=== PATIENT | female | born 1975 | race African-American/Black ===

== ENCOUNTER 2018-02-27 16:05 | Emergency (ER) | payer MEDICAID, OTHER ==
[2018-02-27] MEDS ORDERED: SOD CHLORIDE 0.9% 1,000 ML IV (19:15)
[2018-02-27] MEDS ORDERED: HYDROmorphONE 0.5 MG/0.5 ML SYG IV (19:26)
[2018-02-27] MEDS ORDERED: ONDANSETRON 4 MG INJ IV (19:26)
[2018-02-27] MEDS ORDERED: DIPHENHYDRAMINE 50 MG INJ IV (19:30)
[2018-02-27 19:32] LABS: ADD UMIC NO; UR ASCORBIC ACID NEGATIVE (NEGATIVE); UR BILIRUBIN (Dip) NEGATIVE (NEGATIVE); UR BLOOD (Dip) NEGATIVE (NEGATIVE); UR CLARITY CLEAR (CLEAR); UR COLOR STRAW (YELLOW); UR GLUCOSE (Dip) 3+ mg/dL (NEGATIVE); UR KETONES (Dip) NEGATIVE (NEGATIVE); UR LEUKOCYTE ESTERASE (Dip) NEGATIVE Leu/ul (NEGATIVE); UR NITRITE (Dip) NEGATIVE (NEGATIVE); UR SPECIFIC GRAVITY (Dip) 1.014 (1.003-1.030); UR TOTAL PROTEIN (Dip) NEGATIVE (NEGATIVE); UR UROBILINOGEN (Dip) NEGATIVE (NEGATIVE)
[2018-02-27] MEDS: ONDANSETRON (ODT) 4 MG TAB ODT (20:13)
[2018-02-27] MEDS: HYDROmorphONE 2 MG/ML SYG IM (20:13)
[2018-02-27] MEDS: DIPHENHYDRAMINE 50 MG INJ IM (20:13)
[2018-02-27 21:35] LABS: AMPHETAMINE/METHAMPHETAMINE Negative (NEGATIVE); BARBITURATES Negative (NEGATIVE); BENZODIAZEPINES Negative (NEGATIVE); CANNABINOIDS Negative (NEGATIVE); COCAINE Negative (NEGATIVE)
[2018-02-27 21:37] LABS: OPIATES Positive (NEGATIVE)
[2018-02-27] MEDS: HYDROmorphONE 0.5 MG/0.5 ML SYG IV (22:13)
== END 2018-02-27 22:30 | disposition home or self-care (01) ==
LOC: E/R 16:05
DX: D57.00 Hb-SS disease with crisis, unspecified (principal); R40.2142 Coma scale, eyes open, spontaneous, at arrival to emergency department; R40.2362 Coma scale, best motor response, obeys commands, at arrival to emergency department; R40.2252 Coma scale, best verbal response, oriented, at arrival to emergency department; R10.9 Unspecified abdominal pain; Z72.89 Other problems related to lifestyle; Z86.2 Personal history of diseases of the blood and blood-forming organs and certain disorders involving the immune mechanism
CPT/HCPCS: 71045; 80307; 81003; 93005; 96372; 96374; 99285-25

== ENCOUNTER 2018-04-02 05:54 | Emergency (ER) | payer MEDICAID ==
[2018-04-02] MEDS ORDERED: HYDROmorphONE 1 MG/ML SYG IV (06:49)
[2018-04-02 06:53] LABS: URINE BLOOD (Dip) POC Negative (NEGATIVE); URINE KETONES (Dip) POC Negative (NEGATIVE); URINE LEUKOCYTE EST (Dip) POC Negative (NEGATIVE); URINE NITRITE (Dip) POC Negative (NEGATIVE); URINE TOTAL PROTEIN POC 1+ (NEGATIVE)
[2018-04-02] MEDS: HYDROmorphONE 2 MG/ML SYG IM (07:05)
[2018-04-02] MEDS: ONDANSETRON (ODT) 4 MG TAB ODT (07:05)
== END 2018-04-02 07:55 | disposition home or self-care (01) ==
LOC: FTE 05:54
DX: R52 Pain, unspecified (principal); E11.9 Type 2 diabetes mellitus without complications
CPT/HCPCS: 81003; 81025; 96372; 99284-25

== ENCOUNTER 2018-05-12 05:10 | Emergency (ER) | payer SELFPAY, MEDICAID ==
[2018-05-12] MEDS: SOD CHLORIDE 0.9% 1,000 ML IV ×2 (05:50→07:02)
[2018-05-12 06:15] LABS: WHITE BLOOD COUNT 2.6 10^3/ul (4.8-10.8)
[2018-05-12 06:15] LABS: ABNORMAL IP MESSAGE 1; HEMATOCRIT 31.9 % (37.0-47.0); HEMOGLOBIN 9.5 g/dl (12.0-16.0); MEAN CORPUSCULAR HEMOGLOBIN 22.4 pg (29.0-33.0); MEAN CORPUSCULAR HGB CONC 29.8 g/dl (32.0-37.0); MEAN CORPUSCULAR VOLUME 75.2 fl (82.0-101.0); PLATELET COUNT 108 10^3/UL (140-415); RED BLOOD COUNT 4.24 10^6/ul (4.20-5.40); RED CELL DISTRIBUTION WIDTH 17.2 % (11.5-14.5); RETICULOCYTE COUNT % 1.9 % (0.5-1.5); RETICULOCYTE RBC 4.24
[2018-05-12 06:25] LABS: ADD UMIC YES; UR ASCORBIC ACID NEGATIVE (NEGATIVE); UR BILIRUBIN (Dip) NEGATIVE (NEGATIVE); UR BLOOD (Dip) 1+ mg/dL (NEGATIVE); UR CLARITY CLEAR (CLEAR); UR COLOR YELLOW (YELLOW); UR GLUCOSE (Dip) 3+ mg/dL (NEGATIVE); UR KETONES (Dip) NEGATIVE (NEGATIVE); UR LEUKOCYTE ESTERASE (Dip) NEGATIVE Leu/ul (NEGATIVE); UR NITRITE (Dip) NEGATIVE (NEGATIVE); UR RBC 2 /HPF (0-5); UR SQUAMOUS EPITHELIAL CELL FEW /HPF (FEW); UR TOTAL PROTEIN (Dip) 1+ mg/dl (NEGATIVE); UR UROBILINOGEN (Dip) NEGATIVE (NEGATIVE); UR WBC 2 /HPF (0-5)
[2018-05-12 06:29] LABS: INR 1.32; PROTIME 16.6 Sec (11.9-14.9); PT RATIO 1.3
[2018-05-12 06:30] LABS: ALBUMIN 3.2 g/dl (3.3-4.9); ALBUMIN/GLOBULIN RATIO 0.78; ALKALINE PHOSPHATASE 129 IU/L (42-121); ANION GAP 14 (5-13); ASPARTATE AMINO TRANSFERASE 16 IU/L (15-46); BILIRUBIN,INDIRECT 0.3 mg/dl (0-1.1); BILIRUBIN,TOTAL 0.3 mg/dl (0.2-1.3); BLOOD UREA NITROGEN 8 mg/dl (7-20); CALCIUM 7.5 mg/dl (8.4-10.2); CARBON DIOXIDE 18 mmol/L (21-31); CHLORIDE 107 mmol/L (97-110); CREATININE 0.89 mg/dl (0.44-1.00); Estimated GFR > 60 mL/min (>60); PARTIAL THROMBOPLASTIN TIME 37.9 Sec (23.0-35.0); POTASSIUM 3.5 mmol/L (3.5-5.1); SODIUM 139 mmol/L (135-144); TOTAL PROTEIN 7.3 g/dl (6.1-8.1)
[2018-05-12 06:31] LABS: ADD MAN DIFF? YES; ALANINE AMINOTRANSFERASE < 6 IU/L (13-69); POSITIVE DIFF @See below
[2018-05-12 06:32] LABS: GLUCOSE 571 mg/dl (70-220)
[2018-05-12] MEDS: DIPHENHYDRAMINE 50 MG INJ IV ×2 (07:02→08:50)
[2018-05-12] MEDS: HYDROmorphONE 2 MG/ML SYG IV (07:02)
[2018-05-12] MEDS: ONDANSETRON 4 MG INJ IV ×2 (07:02→08:50)
[2018-05-12 07:18] LABS: HEMOGLOBIN A1C 10.4 % (0-5.9)
[2018-05-12] MEDS ORDERED: GLUCOSE GEL 15 GRAM TUBE PO ×2 (07:30)
[2018-05-12] MEDS ORDERED: GLUCOSE GEL 15 GRAM TUBE BUCCAL (07:30)
[2018-05-12] MEDS ORDERED: DEXTROSE 50% 50 ML SYRINGE IV ×2 (07:30)
[2018-05-12] MEDS ORDERED: GLUCAGON 1 MG INJ IM (07:30)
[2018-05-12] MEDS: INSULIN REGULAR, HUMAN 100 UNIT/1 ML 3ML VIAL IV (07:31)
[2018-05-12 07:40] LABS: ANISOCYTOSIS 2+ (0-0); BAND NEUTROPHILS #M 0.3 10^3/ul (0.0-0.6); BAND NEUTROPHILS % (M) 15 % (0-4); EOSINOPHILS % (M) 4 % (0-7); LYMPHOCYTES #M 0.2 10^3/ul (0.8-2.9); LYMPHOCYTES % (M) 8 % (15-51); MICROCYTOSIS 2+ (0-0); MONOCYTE #M 0.1 10^3/ul (0.3-0.9); MONOCYTES % (M) 4 % (0-11); PLATELET ESTIMATE INCREASED; POLYCHROMASIA 1+ (0-0); REACTIVE LYMPHOCYTES% (M) 3 % (0-0); SEG NEUT #M 1.7 10^3/ul (1.6-7.5); SEGMENTED NEUTROPHILS (M) % 66 % (39-77); SMUDGE%M 12 % (0-0)
[2018-05-12] MEDS: HYDROmorphONE 1 MG/ML SYG IV (08:51)
== END 2018-05-12 09:28 | disposition home or self-care (01) ==
LOC: E/R 05:10
DX: D57.00 Hb-SS disease with crisis, unspecified (principal); E11.65 Type 2 diabetes mellitus with hyperglycemia; M79.643 Pain in unspecified hand
CPT/HCPCS: 80053; 81001; 82962; 83036; 85025; 85045; 85610; 85730; 96374; 96375; 96376; 99284-25

== ENCOUNTER 2018-07-03 01:32 | Emergency (ER) | payer SELFPAY ==
[2018-07-03] MEDS: SOD CHLORIDE 0.9% 1,000 ML IV (02:28)
[2018-07-03 03:08] LABS: ADD MAN DIFF? NO
[2018-07-03 03:10] LABS: WHITE BLOOD COUNT 4.4 10^3/ul (4.8-10.8)
[2018-07-03 03:10] LABS: ABNORMAL IP MESSAGE 1; BASOPHILS % 0.2 % (0.0-2.0); EOSINOPHILS % 0.9 % (0.0-7.0); HEMATOCRIT 30.1 % (37.0-47.0); HEMOGLOBIN 8.7 g/dl (12.0-16.0); LYMPHOCYTES # 1.6 10^3/ul (0.8-2.9); LYMPHOCYTES % 37.4 % (15.0-51.0); MEAN CORPUSCULAR HEMOGLOBIN 23.7 pg (29.0-33.0); MEAN CORPUSCULAR HGB CONC 28.9 g/dl (32.0-37.0); MEAN PLATELET VOLUME 8.8 fl (7.4-10.4); MONOCYTE # 0.2 10^3/ul (0.3-0.9); MONOCYTES % 4.3 % (0.0-11.0); NEUTROPHIL # 2.5 10^3/ul (1.6-7.5); PLATELET COUNT 211 10^3/UL (140-415); RED BLOOD COUNT 3.67 10^6/ul (4.20-5.40); RED CELL DISTRIBUTION WIDTH 20.2 % (11.5-14.5); RETICULOCYTE COUNT # 0.088 X10^6 (0.020-0.110); RETICULOCYTE COUNT % 2.4 % (0.5-1.5); RETICULOCYTE RBC 3.67
[2018-07-03 03:17] LABS: POSITIVE DIFF @See below
[2018-07-03] MEDS: ONDANSETRON 4 MG INJ IV (03:17)
[2018-07-03] MEDS: morphine 4 MG/ML VIAL IV (03:17)
[2018-07-03 03:29] LABS: ANION GAP 13 (5-13); BLOOD UREA NITROGEN 11 mg/dl (7-20); CALCIUM 8.6 mg/dl (8.4-10.2); CARBON DIOXIDE 22 mmol/L (21-31); CHLORIDE 105 mmol/L (97-110); CREATININE 1.11 mg/dl (0.44-1.00); Estimated GFR > 60 mL/min (>60); GLUCOSE 299 mg/dl (70-220); POTASSIUM 4.7 mmol/L (3.5-5.1); SODIUM 140 mmol/L (135-144)
[2018-07-03] MEDS: DIPHENHYDRAMINE 50 MG INJ IV (03:53)
[2018-07-03] MEDS: HYDROmorphONE 2 MG/ML SYG IM ×2 (03:59→05:51)
== END 2018-07-03 06:03 | disposition home or self-care (01) ==
LOC: E/R 01:32
DX: D57.00 Hb-SS disease with crisis, unspecified (principal)
CPT/HCPCS: 80048; 85025; 85045; 96374; 96375; 96376; 99284-25

== ENCOUNTER 2018-07-21 18:59 | Emergency (ER) | payer SELFPAY, OTHER ==
[2018-07-22] MEDS ORDERED: SOD CHLORIDE 0.9% 1,000 ML IV (00:32)
[2018-07-22] MEDS ORDERED: ONDANSETRON 4 MG INJ IV (00:32)
[2018-07-22] MEDS: morphine 4 MG/ML VIAL IV (01:15)
[2018-07-22] MEDS: HYDROmorphONE 0.5 MG/0.5 ML SYG IM ×2 (03:24→05:41)
== END 2018-07-22 05:59 | disposition home or self-care (01) ==
LOC: E/R 18:59
DX: D57.1 Sickle-cell disease without crisis (principal); E11.9 Type 2 diabetes mellitus without complications; Z79.4 Long term (current) use of insulin
CPT/HCPCS: 71045; 93005; 96372; 96374; 99285-25

== ENCOUNTER 2018-07-24 23:39 | Emergency (ER) | payer SELFPAY ==
[2018-07-25 01:55] LABS: ADD UMIC NO; UR ASCORBIC ACID NEGATIVE (NEGATIVE); UR BILIRUBIN (Dip) NEGATIVE (NEGATIVE); UR BLOOD (Dip) NEGATIVE (NEGATIVE); UR CLARITY CLEAR (CLEAR); UR COLOR STRAW (YELLOW); UR GLUCOSE (Dip) 3+ mg/dL (NEGATIVE); UR KETONES (Dip) NEGATIVE (NEGATIVE); UR LEUKOCYTE ESTERASE (Dip) NEGATIVE Leu/ul (NEGATIVE); UR NITRITE (Dip) NEGATIVE (NEGATIVE); UR SPECIFIC GRAVITY (Dip) 1.026 (1.003-1.030); UR TOTAL PROTEIN (Dip) NEGATIVE (NEGATIVE); UR UROBILINOGEN (Dip) NEGATIVE (NEGATIVE)
[2018-07-25] MEDS: DIPHENHYDRAMINE 50 MG INJ IM ×3 (01:59→05:49)
[2018-07-25] MEDS: HYDROmorphONE 2 MG/ML SYG IM ×3 (01:59→05:50)
[2018-07-25] MEDS: ONDANSETRON (ODT) 4 MG TAB ODT (02:00)
== END 2018-07-25 06:06 | disposition home or self-care (01) ==
LOC: E/R 23:39
DX: D57.1 Sickle-cell disease without crisis (principal); E11.9 Type 2 diabetes mellitus without complications; Z79.4 Long term (current) use of insulin
CPT/HCPCS: 81003; 81025; 96372; 99285-25

== ENCOUNTER 2018-08-06 01:40 | Emergency (ER) | payer SELFPAY ==
[2018-08-06] MEDS: HYDROmorphONE 2 MG/ML SYG IM ×3 (03:52→05:35)
[2018-08-06] MEDS: DIPHENHYDRAMINE 50 MG INJ IM ×3 (03:52→05:35)
[2018-08-06] MEDS: ONDANSETRON (ODT) 4 MG TAB ODT ×2 (03:52→04:45)
== END 2018-08-06 05:45 | disposition home or self-care (01) ==
LOC: E/R 01:40
DX: D57.00 Hb-SS disease with crisis, unspecified (principal); Z79.4 Long term (current) use of insulin
CPT/HCPCS: 96372; 99284-25

== ENCOUNTER 2018-08-16 21:17 | Inpatient (IN) | payer SELFPAY ==
[2018-08-16] MEDS: HYDROmorphONE 2 MG/ML SYG IM (23:40)
[2018-08-16] MEDS: DIPHENHYDRAMINE 50 MG INJ IM (23:40)
[2018-08-17] MEDS: HYDROmorphONE 2 MG/ML SYG IM (00:56)
[2018-08-17] MEDS: HYDROXYUREA 500 MG CAP PO ×3 (03:00→21:00)
[2018-08-17] MEDS ORDERED: HYDROmorphONE 2 MG/ML SYG IV (03:00)
[2018-08-17] MEDS ORDERED: NACL 0.9% 3 ML SYG IV (03:00)
[2018-08-17] MEDS ORDERED: GLUCOSE GEL 15 GRAM TUBE PO ×2 (03:30)
[2018-08-17] MEDS ORDERED: GLUCAGON 1 MG INJ IM (03:30)
[2018-08-17] MEDS ORDERED: GLUCOSE GEL 15 GRAM TUBE BUCCAL (03:30)
[2018-08-17] MEDS ORDERED: DEXTROSE 50% 50 ML SYRINGE IV ×2 (03:30)
[2018-08-17] MEDS: HYDROmorphONE 1 MG/ML SYG IV ×2 (04:27→06:00)
[2018-08-17 04:39] LABS: ADD MAN DIFF? NO
[2018-08-17] MEDS: DIPHENHYDRAMINE 50 MG CAP PO (04:54)
[2018-08-17 05:01] LABS: ALANINE AMINOTRANSFERASE 18 IU/L (13-69); ALBUMIN 3.9 g/dl (3.3-4.9); ALBUMIN/GLOBULIN RATIO 0.82; ALKALINE PHOSPHATASE 206 IU/L (42-121); ANION GAP 13 (5-13); ASPARTATE AMINO TRANSFERASE 23 IU/L (15-46); BILIRUBIN,INDIRECT 0.2 mg/dl (0-1.1); BILIRUBIN,TOTAL 0.2 mg/dl (0.2-1.3); BLOOD UREA NITROGEN 11 mg/dl (7-20); CARBON DIOXIDE 25 mmol/L (21-31); CHLORIDE 96 mmol/L (97-110); CREATININE 1.29 mg/dl (0.44-1.00); Estimated GFR 55 mL/min (>60); LIPASE 48 U/L (23-300); POTASSIUM 4.6 mmol/L (3.5-5.1); SODIUM 134 mmol/L (135-144); TOTAL PROTEIN 8.6 g/dl (6.1-8.1)
[2018-08-17 05:22] LABS: GLUCOSE 622 mg/dl (70-220)
[2018-08-17] MEDS: LIDOCAINE 1% (MPF) 5 ML VIAL SC (05:30)
[2018-08-17] MEDS: INSULIN GLARGINE [LANTus] (100 UNITS/ML) SYG SC ×2 (05:30→21:25)
[2018-08-17] MEDS: INSULIN REGULAR, HUMAN 100 UNIT/1 ML 3ML VIAL IV (05:40)
[2018-08-17 05:51] LABS: WHITE BLOOD COUNT 3.1 10^3/ul (4.8-10.8)
[2018-08-17 05:51] LABS: BASOPHILS % 0.3 % (0.0-2.0); EOSINOPHILS # 0.1 10^3/ul (0.0-0.5); EOSINOPHILS % 1.9 % (0.0-7.0); HEMATOCRIT 30.8 % (37.0-47.0); HEMOGLOBIN 9.2 g/dl (12.0-16.0); LYMPHOCYTES % 33.8 % (15.0-51.0); MEAN CORPUSCULAR HEMOGLOBIN 24.2 pg (29.0-33.0); MEAN CORPUSCULAR HGB CONC 29.9 g/dl (32.0-37.0); MEAN CORPUSCULAR VOLUME 81.1 fl (82.0-101.0); MEAN PLATELET VOLUME 9.5 fl (7.4-10.4); MONOCYTE # 0.2 10^3/ul (0.3-0.9); MONOCYTES % 6.5 % (0.0-11.0); NEUTROPHIL # 1.8 10^3/ul (1.6-7.5); NEUTROPHILS % 57.2 % (39.0-77.0); PLATELET COUNT 207 10^3/UL (140-415); RED CELL DISTRIBUTION WIDTH 15.6 % (11.5-14.5); RETICULOCYTE COUNT # 0.079 X10^6 (0.020-0.110); RETICULOCYTE COUNT % 2.1 % (0.5-1.5)
[2018-08-17 05:52] LABS: POSITIVE DIFF @See below
[2018-08-17] MEDS ORDERED: HYDROmorphONE 1 MG/ML SYG IV ×2 (06:00→07:30)
[2018-08-17] MEDS: SOD CHLORIDE 0.9% 1,000 ML IV ×3 (06:00→22:00)
[2018-08-17] MEDS: ACCU-CHEK XX (07:45)
[2018-08-17 07:48] LABS: SICKLE CELL SCREEN POSITIVE (NEGATIVE)
[2018-08-17] MEDS: FOLIC ACID 1 MG TAB PO (08:07)
[2018-08-17] MEDS: CREON (12k-38k-60k) 1 CAP PO ×3 (08:07→17:25)
[2018-08-17] MEDS: PANTOPRAZOLE (EC) 40 MG TAB PO ×2 (08:10→17:25)
[2018-08-17] MEDS: INSULIN ASPART [NOVOLOG] 3 ML PEN SC ×7 (08:54→21:00)
[2018-08-17 09:03] LABS: HEMOGLOBIN A1C 9.2 % (0-5.9)
[2018-08-17] MEDS: HYDROmorphONE 2 MG TAB PO ×4 (09:29→21:01)
[2018-08-17] MEDS: ACETAMINOPHEN 325 MG TAB PO (12:00)
[2018-08-17] MEDS: RIVAROXABAN 20 MG TABLET PO (17:25)
[2018-08-17] MEDS ORDERED: INSULIN GLARGINE [LANTus] (100 UNITS/ML) SYG SC (21:00)
[2018-08-18] MEDS: HYDROmorphONE 2 MG TAB PO ×6 (00:56→20:35)
[2018-08-18] MEDS: PANTOPRAZOLE (EC) 40 MG TAB PO ×2 (05:00→17:54)
[2018-08-18] MEDS: SOD CHLORIDE 0.9% 1,000 ML IV ×3 (06:00→19:01)
[2018-08-18] MEDS: CREON (12k-38k-60k) 1 CAP PO ×3 (07:53→17:54)
[2018-08-18] MEDS: INSULIN ASPART [NOVOLOG] 3 ML PEN SC ×7 (08:13→20:43)
[2018-08-18 08:16] LABS: ADD UMIC YES; UR ASCORBIC ACID NEGATIVE (NEGATIVE); UR BACTERIA FEW /HPF (NONE SEEN); UR BILIRUBIN (Dip) NEGATIVE (NEGATIVE); UR BLOOD (Dip) 2+ mg/dL (NEGATIVE); UR CLARITY CLEAR (CLEAR); UR COLOR YELLOW (YELLOW); UR GLUCOSE (Dip) 3+ mg/dL (NEGATIVE); UR KETONES (Dip) NEGATIVE (NEGATIVE); UR LEUKOCYTE ESTERASE (Dip) TRACE Leu/ul (NEGATIVE); UR NITRITE (Dip) NEGATIVE (NEGATIVE); UR RBC 2 /HPF (0-5); UR SPECIFIC GRAVITY (Dip) 1.013 (1.003-1.030); UR TOTAL PROTEIN (Dip) NEGATIVE (NEGATIVE); UR UROBILINOGEN (Dip) NEGATIVE (NEGATIVE); UR WBC 2 /HPF (0-5)
[2018-08-18 08:18] LABS: AMPHETAMINE/METHAMPHETAMINE Negative (NEGATIVE); BARBITURATES Negative (NEGATIVE); BENZODIAZEPINES Negative (NEGATIVE); CANNABINOIDS Negative (NEGATIVE); COCAINE Negative (NEGATIVE)
[2018-08-18 08:21] LABS: OPIATES Positive (NEGATIVE)
[2018-08-18] MEDS: FOLIC ACID 1 MG TAB PO (08:55)
[2018-08-18] MEDS: HYDROXYUREA 500 MG CAP PO ×2 (08:57→20:43)
[2018-08-18] MEDS: RIVAROXABAN 20 MG TABLET PO (17:54)
[2018-08-18] MEDS: INSULIN GLARGINE [LANTus] (100 UNITS/ML) SYG SC (20:43)
[2018-08-18] MEDS: ZOLPIDEM 5 MG TAB PO (22:55)
[2018-08-19] MEDS: HYDROmorphONE 2 MG TAB PO ×6 (00:42→20:32)
[2018-08-19] MEDS: SOD CHLORIDE 0.9% 1,000 ML IV ×3 (04:59→22:00)
[2018-08-19] MEDS: PANTOPRAZOLE (EC) 40 MG TAB PO ×2 (05:16→17:26)
[2018-08-19] MEDS: CREON (12k-38k-60k) 1 CAP PO ×3 (08:32→17:14)
[2018-08-19] MEDS: FOLIC ACID 1 MG TAB PO (08:32)
[2018-08-19] MEDS: INSULIN ASPART [NOVOLOG] 3 ML PEN SC ×7 (09:05→20:33)
[2018-08-19] MEDS: HYDROXYUREA 500 MG CAP PO ×2 (09:05→20:39)
[2018-08-19] MEDS: DIPHENHYDRAMINE 50 MG CAP PO ×2 (13:20→20:33)
[2018-08-19] MEDS: ACETAMINOPHEN 325 MG TAB PO (15:52)
[2018-08-19] MEDS: RIVAROXABAN 20 MG TABLET PO (17:14)
[2018-08-19] MEDS: INSULIN GLARGINE [LANTus] (100 UNITS/ML) SYG SC (20:39)
[2018-08-20] MEDS: HYDROmorphONE 2 MG TAB PO ×4 (01:08→12:46)
[2018-08-20] MEDS: DIPHENHYDRAMINE 50 MG CAP PO ×3 (02:23→12:45)
[2018-08-20] MEDS: SOD CHLORIDE 0.9% 1,000 ML IV (06:00)
[2018-08-20] MEDS: PANTOPRAZOLE (EC) 40 MG TAB PO (06:33)
[2018-08-20] MEDS: INSULIN ASPART [NOVOLOG] 3 ML PEN SC ×4 (08:04→12:00)
[2018-08-20] MEDS: FOLIC ACID 1 MG TAB PO (08:41)
[2018-08-20] MEDS: CREON (12k-38k-60k) 1 CAP PO ×2 (08:41→12:45)
[2018-08-20] MEDS: HYDROXYUREA 500 MG CAP PO (08:44)
== END 2018-08-20 14:10 | disposition home or self-care (01) | DRG 812 ==
LOC: PP2 08-20 09:30 → E/R 21:17 → TEL 08-17 01:18
DX: D57.00 Hb-SS disease with crisis, unspecified (principal); F11.20 Opioid dependence, uncomplicated; G89.4 Chronic pain syndrome; F17.200 Nicotine dependence, unspecified, uncomplicated; E11.65 Type 2 diabetes mellitus with hyperglycemia; Z86.711 Personal history of pulmonary embolism; Z86.718 Personal history of other venous thrombosis and embolism; Z79.4 Long term (current) use of insulin; Z88.2 Allergy status to sulfonamides
CPT/HCPCS: 36415; 71045; 80053; 80307; 81001; 82962; 83036; 83690; 85025; 85045; 85660; 96372; 99285-25

== ENCOUNTER 2018-09-07 12:46 | Emergency (ER) | payer SELFPAY, MEDICAID ==
[2018-09-07] MEDS: HYDROmorphONE 2 MG/ML SYG IM ×2 (13:03→14:10)
[2018-09-07] MEDS: ONDANSETRON (ODT) 4 MG TAB ODT (13:03)
[2018-09-07] MEDS: DIPHENHYDRAMINE 50 MG INJ IM (13:03)
[2018-09-07 14:02] LABS: ADD MAN DIFF? NO
[2018-09-07 14:08] LABS: WHITE BLOOD COUNT 3.6 10^3/ul (4.8-10.8)
[2018-09-07 14:08] LABS: BASOPHILS % 0.6 % (0.0-2.0); EOSINOPHILS # 0.1 10^3/ul (0.0-0.5); EOSINOPHILS % 2.5 % (0.0-7.0); HEMATOCRIT 37.6 % (37.0-47.0); HEMOGLOBIN 11.1 g/dl (12.0-16.0); LYMPHOCYTES # 1.2 10^3/ul (0.8-2.9); MEAN CORPUSCULAR HEMOGLOBIN 24.4 pg (29.0-33.0); MEAN CORPUSCULAR HGB CONC 29.5 g/dl (32.0-37.0); MEAN CORPUSCULAR VOLUME 82.6 fl (82.0-101.0); MEAN PLATELET VOLUME 8.9 fl (7.4-10.4); MONOCYTE # 0.2 10^3/ul (0.3-0.9); MONOCYTES % 6.6 % (0.0-11.0); RED BLOOD COUNT 4.55 10^6/ul (4.20-5.40); RED CELL DISTRIBUTION WIDTH 17.5 % (11.5-14.5); RETICULOCYTE COUNT # 0.113 X10^6 (0.020-0.110); RETICULOCYTE COUNT % 2.5 % (0.5-1.5); RETICULOCYTE RBC 4.55
[2018-09-07 14:19] LABS: PLATELET COUNT 272 10^3/UL (140-415); POSITIVE DIFF @See below
[2018-09-07 14:24] LABS: ALANINE AMINOTRANSFERASE 29 IU/L (13-69); ALBUMIN 4.3 g/dl (3.3-4.9); ALBUMIN/GLOBULIN RATIO 0.75; ALKALINE PHOSPHATASE 225 IU/L (42-121); ANION GAP 11 (5-13); ASPARTATE AMINO TRANSFERASE 56 IU/L (15-46); BILIRUBIN,INDIRECT 0.3 mg/dl (0-1.1); BILIRUBIN,TOTAL 0.3 mg/dl (0.2-1.3); BLOOD UREA NITROGEN 13 mg/dl (7-20); CALCIUM 9.5 mg/dl (8.4-10.2); CARBON DIOXIDE 26 mmol/L (21-31); CHLORIDE 100 mmol/L (97-110); CREATININE 1.02 mg/dl (0.44-1.00); Estimated GFR > 60 mL/min (>60); SODIUM 137 mmol/L (135-144)
[2018-09-07 14:33] LABS: POTASSIUM 5.3 mmol/L (3.5-5.1)
[2018-09-07 14:34] LABS: GLUCOSE 463 mg/dl (70-220)
[2018-09-07] MEDS: INSULIN LISPRO 100 UNIT/ML VIAL SC (14:43)
== END 2018-09-07 15:25 | disposition home or self-care (01) ==
LOC: E/R 12:46
DX: M79.18 Myalgia, other site (principal); D57.00 Hb-SS disease with crisis, unspecified; M25.549 Pain in joints of unspecified hand; M25.579 Pain in unspecified ankle and joints of unspecified foot
CPT/HCPCS: 80053; 82962; 85025; 85045; 96372; 99284-25

== ENCOUNTER 2018-12-06 07:34 | Emergency (ER) | payer SELFPAY ==
[2018-12-06] MEDS: HYDROmorphONE 2 MG/ML SYG IM (08:04)
[2018-12-06] MEDS: DIPHENHYDRAMINE 50 MG CAP PO (08:04)
== END 2018-12-06 08:40 | disposition home or self-care (01) ==
LOC: E/R 07:34
DX: D57.00 Hb-SS disease with crisis, unspecified (principal); E11.9 Type 2 diabetes mellitus without complications; F17.210 Nicotine dependence, cigarettes, uncomplicated; Z79.4 Long term (current) use of insulin
CPT/HCPCS: 96372; 99284-25

== ENCOUNTER 2018-12-12 14:54 | Inpatient (IN) | payer MEDICAID ==
[2018-12-12] MEDS: ONDANSETRON 4 MG INJ IV (16:29)
[2018-12-12] MEDS: SOD CHLORIDE 0.9% 1,000 ML IV ×3 (16:29→19:38)
[2018-12-12] MEDS: DIPHENHYDRAMINE 25 MG CAP PO (16:29)
[2018-12-12] MEDS: HYDROmorphONE 1 MG/ML SYG IV (16:30)
[2018-12-12 16:37] LABS: ADD MAN DIFF? NO
[2018-12-12 16:41] LABS: WHITE BLOOD COUNT 3.1 10^3/ul (4.8-10.8)
[2018-12-12 16:41] LABS: ABNORMAL IP MESSAGE 1; BASOPHILS % 0.3 % (0.0-2.0); EOSINOPHILS % 0.3 % (0.0-7.0); HEMATOCRIT 29.4 % (37.0-47.0); HEMOGLOBIN 8.8 g/dl (12.0-16.0); LYMPHOCYTES # 0.4 10^3/ul (0.8-2.9); LYMPHOCYTES % 13.4 % (15.0-51.0); MEAN CORPUSCULAR HEMOGLOBIN 25.1 pg (29.0-33.0); MEAN CORPUSCULAR HGB CONC 29.9 g/dl (32.0-37.0); MEAN CORPUSCULAR VOLUME 83.8 fl (82.0-101.0); MEAN PLATELET VOLUME 10.4 fl (7.4-10.4); MONOCYTE # 0.3 10^3/ul (0.3-0.9); MONOCYTES % 9.2 % (0.0-11.0); NEUTROPHIL # 2.4 10^3/ul (1.6-7.5); NEUTROPHILS % 76.5 % (39.0-77.0); PLATELET COUNT 209 10^3/UL (140-415); RED BLOOD COUNT 3.51 10^6/ul (4.20-5.40); RED CELL DISTRIBUTION WIDTH 17.4 % (11.5-14.5); RETICULOCYTE COUNT # 0.065 X10^6 (0.020-0.110); RETICULOCYTE COUNT % 1.9 % (0.5-1.5); RETICULOCYTE RBC 3.51
[2018-12-12 16:45] LABS: POSITIVE DIFF @See below
[2018-12-12 17:00] LABS: ALANINE AMINOTRANSFERASE 17 IU/L (13-69); ALBUMIN 3.9 g/dl (3.3-4.9); ALKALINE PHOSPHATASE 201 IU/L (42-121); ANION GAP 13 (5-13); ASPARTATE AMINO TRANSFERASE 42 IU/L (15-46); BILIRUBIN,INDIRECT 0.4 mg/dl (0-1.1); BILIRUBIN,TOTAL 0.4 mg/dl (0.2-1.3); BLOOD UREA NITROGEN 23 mg/dl (7-20); CALCIUM 8.4 mg/dl (8.4-10.2); CARBON DIOXIDE 21 mmol/L (21-31); CHLORIDE 103 mmol/L (97-110); CREATININE 1.21 mg/dl (0.44-1.00); Estimated GFR 59 mL/min (>60); INR 1.36; LIPASE 50 U/L (23-300); POTASSIUM 4.9 mmol/L (3.5-5.1); PROTIME 16.9 Sec (11.9-14.9); PT RATIO 1.3; SODIUM 137 mmol/L (135-144); TOTAL PROTEIN 9.4 g/dl (6.1-8.1)
[2018-12-12 17:01] LABS: PARTIAL THROMBOPLASTIN TIME 24.7 Sec (23.0-35.0)
[2018-12-12 17:17] LABS: GLUCOSE 668 mg/dl (70-220)
[2018-12-12 17:36] LABS: URINE BLOOD (Dip) POC 1+ (NEGATIVE); URINE GLUCOSE (Dip) POC >=1.0% (NEGATIVE); URINE KETONES (Dip) POC Negative (NEGATIVE); URINE LEUKOCYTE EST (Dip) POC Negative (NEGATIVE); URINE NITRITE (Dip) POC Negative (NEGATIVE); URINE TOTAL PROTEIN POC 2+ (NEGATIVE)
[2018-12-12] MEDS: HYDROmorphONE 2 MG/ML SYG IV (17:48)
[2018-12-12] MEDS ORDERED: ONDANSETRON 4 MG INJ IV ×2 (18:00→18:30)
[2018-12-12] MEDS ORDERED: ACETAMINOPHEN 325 MG TAB PO (18:30)
[2018-12-12] MEDS ORDERED: DEXTROSE 50% 50 ML SYRINGE IV ×2 (18:30)
[2018-12-12] MEDS ORDERED: GLUCOSE GEL 15 GRAM TUBE BUCCAL (18:30)
[2018-12-12] MEDS ORDERED: HYDROmorphONE 4 MG TAB PO (18:30)
[2018-12-12] MEDS ORDERED: OXYCODONE/ACETAMINOPHEN (5/325) TAB PO (18:30)
[2018-12-12] MEDS ORDERED: GLUCAGON 1 MG INJ IM (18:30)
[2018-12-12] MEDS ORDERED: GLUCOSE GEL 15 GRAM TUBE PO ×2 (18:30)
[2018-12-12] MEDS ORDERED: HYDROmorphONE 0.5 MG/0.5 ML SYG IV (18:30)
[2018-12-12] MEDS ORDERED: NACL 0.9% 3 ML SYG IV (18:30)
[2018-12-12] MEDS: ACCU-CHEK XX ×2 (18:46→23:30)
[2018-12-12] MEDS: DIPHENHYDRAMINE 50 MG CAP PO (18:50)
[2018-12-12] MEDS: INSULIN ASPART [NOVOLOG] 3 ML PEN SC ×3 (18:52→23:21)
[2018-12-12] MEDS: HYDROmorphONE 2 MG TAB PO ×2 (19:20→23:36)
[2018-12-12] MEDS: INSULIN GLARGINE [LANTus] (100 UNITS/ML) SYG SC (20:01)
[2018-12-12] MEDS: morphine 4 MG/ML VIAL IV (21:38)
[2018-12-12] MEDS: HYDROXYUREA 500 MG CAP PO (21:54)
[2018-12-12] MEDS: LORAZEPAM 2 MG INJ IV (23:36)
[2018-12-12] MEDS: SOD CHLORIDE 0.9% 500 ML IV (23:42)
[2018-12-13] MEDS: HYDROmorphONE 2 MG TAB PO ×6 (01:44→23:53)
[2018-12-13] MEDS: INSULIN ASPART [NOVOLOG] 3 ML PEN SC ×8 (01:57→20:36)
[2018-12-13] MEDS: ACCU-CHEK XX ×2 (02:00→04:21)
[2018-12-13] MEDS: SOD CHLORIDE 0.9% 1,000 ML IV ×3 (03:35→19:27)
[2018-12-13] MEDS: DIPHENHYDRAMINE 50 MG CAP PO ×3 (05:33→18:48)
[2018-12-13] MEDS: morphine 4 MG/ML VIAL IV (09:20)
[2018-12-13] MEDS: HYDROXYUREA 500 MG CAP PO ×2 (10:01→20:35)
[2018-12-13] MEDS: traMADol 50 MG TAB PO (11:35)
[2018-12-13] MEDS: FOLIC ACID 1 MG TAB PO (11:35)
[2018-12-13] MEDS: SOD CHLORIDE 0.9% 500 ML IV (20:17)
[2018-12-13] MEDS: INSULIN GLARGINE [LANTus] (100 UNITS/ML) SYG SC (20:36)
[2018-12-14] MEDS: ACCU-CHEK XX (02:00)
[2018-12-14] MEDS: HYDROmorphONE 2 MG TAB PO ×3 (04:19→12:12)
[2018-12-14] MEDS: DIPHENHYDRAMINE 50 MG CAP PO ×2 (04:20→11:15)
[2018-12-14] MEDS: SOD CHLORIDE 0.9% 1,000 ML IV ×2 (07:40→11:21)
[2018-12-14] MEDS: INSULIN ASPART [NOVOLOG] 3 ML PEN SC ×4 (08:09→12:06)
[2018-12-14] MEDS: FOLIC ACID 1 MG TAB PO (08:11)
[2018-12-14] MEDS: HYDROXYUREA 500 MG CAP PO (08:11)
== END 2018-12-14 13:20 | disposition home or self-care (01) | DRG 812 ==
LOC: E/R 14:54 → PP2 17:43
DX: D57.00 Hb-SS disease with crisis, unspecified (principal); N17.9 Acute kidney failure, unspecified; Z79.02 Long term (current) use of antithrombotics/antiplatelets; Z86.711 Personal history of pulmonary embolism; Z72.0 Tobacco use; Z91.14 Patient's other noncompliance with medication regimen; N28.9 Disorder of kidney and ureter, unspecified; E11.65 Type 2 diabetes mellitus with hyperglycemia; E11.22 Type 2 diabetes mellitus with diabetic chronic kidney disease; N18.9 Chronic kidney disease, unspecified
CPT/HCPCS: 36415; 80053; 81003; 81025; 82962; 83690; 85025; 85045; 85610; 85730; 93005; 96361; 96374; 96375; 99285-25

== ENCOUNTER 2018-12-18 16:01 | Emergency (ER) | payer SELFPAY, MEDICAID ==
[2018-12-18] MEDS: DIPHENHYDRAMINE 50 MG INJ IM (16:58)
[2018-12-18] MEDS: HYDROmorphONE 1 MG/ML SYG IM (16:58)
[2018-12-18] MEDS: FAMOTIDINE 20 MG TAB PO (16:59)
[2018-12-18] MEDS: EPINEPHrine 1 MG INJ IM (16:59)
[2018-12-18] MEDS: IPRATROPIUM (NEB) 0.5 MG/2.5 ML AMP INH (17:06)
[2018-12-18] MEDS: ALBUTEROL 0.083% (NEB) 2.5 MG/3 ML AMP INH (17:06)
[2018-12-18 17:09] LABS: WHITE BLOOD COUNT 1.7 10^3/ul (4.8-10.8)
[2018-12-18 17:09] LABS: ABNORMAL IP MESSAGE 1; HEMATOCRIT 29.8 % (37.0-47.0); HEMOGLOBIN 8.9 g/dl (12.0-16.0); MEAN CORPUSCULAR HEMOGLOBIN 24.5 pg (29.0-33.0); MEAN CORPUSCULAR HGB CONC 29.9 g/dl (32.0-37.0); MEAN CORPUSCULAR VOLUME 82.1 fl (82.0-101.0); MEAN PLATELET VOLUME 9.6 fl (7.4-10.4); PLATELET COUNT 214 10^3/UL (140-415); RED BLOOD COUNT 3.63 10^6/ul (4.20-5.40); RED CELL DISTRIBUTION WIDTH 17.9 % (11.5-14.5); RETICULOCYTE COUNT # 0.163 X10^6 (0.020-0.110); RETICULOCYTE COUNT % 4.5 % (0.5-1.5); RETICULOCYTE RBC 3.63
[2018-12-18 17:11] LABS: ADD MAN DIFF? YES; POSITIVE DIFF @See below
[2018-12-18 17:26] LABS: ALANINE AMINOTRANSFERASE 18 IU/L (13-69); ALBUMIN 3.5 g/dl (3.3-4.9); ALBUMIN/GLOBULIN RATIO 0.72; ALKALINE PHOSPHATASE 165 IU/L (42-121); ANION GAP 10 (5-13); ASPARTATE AMINO TRANSFERASE 24 IU/L (15-46); BILIRUBIN,INDIRECT 0.3 mg/dl (0-1.1); BILIRUBIN,TOTAL 0.3 mg/dl (0.2-1.3); BLOOD UREA NITROGEN 7 mg/dl (7-20); CALCIUM 8.3 mg/dl (8.4-10.2); CARBON DIOXIDE 20 mmol/L (21-31); CHLORIDE 107 mmol/L (97-110); CREATININE 0.95 mg/dl (0.44-1.00); Estimated GFR > 60 mL/min (>60); POTASSIUM 4.5 mmol/L (3.5-5.1); SODIUM 137 mmol/L (135-144); TOTAL PROTEIN 8.3 g/dl (6.1-8.1)
[2018-12-18 17:27] LABS: INR 1.05; PROTIME 13.8 Sec (11.9-14.9); PT RATIO 1.1
[2018-12-18 17:36] LABS: GLUCOSE 623 mg/dl (70-220)
[2018-12-18 17:51] LABS: ANISOCYTOSIS 2+ (0-0); BAND NEUTROPHILS % (M) 1 % (0-4); GIANT THROMBO% (M) 2 % (0-0); LYMPHOCYTES #M 0.3 10^3/ul (0.8-2.9); LYMPHOCYTES % (M) 19 % (15-51); METAMYELOCYTES %M 1 % (0-0); MICROCYTOSIS 2+ (0-0); MONOCYTES % (M) 3 % (0-11); PLATELET ESTIMATE NORMAL; POIKILOCYTOSIS 1+ (0-0); POLYCHROMASIA 3+ (0-0); SEG NEUT #M 1.3 10^3/ul (1.6-7.5); SEGMENTED NEUTROPHILS (M) % 76 % (39-77); SMUDGE%M 4 % (0-0)
[2018-12-18] MEDS: INSULIN LISPRO 100 UNIT/ML VIAL SC (18:41)
[2018-12-18] MEDS: HYDROmorphONE 2 MG/ML SYG IM (18:50)
== END 2018-12-18 19:58 | disposition home or self-care (01) ==
LOC: E/R 16:01
DX: D57.00 Hb-SS disease with crisis, unspecified (principal); E11.65 Type 2 diabetes mellitus with hyperglycemia; F17.210 Nicotine dependence, cigarettes, uncomplicated; Z79.4 Long term (current) use of insulin
CPT/HCPCS: 80053; 82962; 85025; 85045; 85610; 85730; 94664; 96372; 99284-25